=== PATIENT | male | born 2000 | race Hispanic/Latino ===

== ENCOUNTER → 2023-01-20 | Outpatient (CLI) | payer OTHER ==
[~2023-01-20] MED LIST: METHACHOLINE KIT INH ONE
== END ==
LOC: M CARPUL 07:37
PROVIDERS: ATTEND Internal Medicine Pulmonary Disease
DX: R06.02 Shortness of breath (principal)
CPT/HCPCS: 88738; 94060; 94726; 94729; J7674

== ENCOUNTER → 2023-02-03 | Outpatient (CLI) | payer OTHER | LOC: M CARPUL 14:16 | PROVIDERS: ATTEND Internal Medicine Pulmonary Disease | DX: R06.02 Shortness of breath (principal) | CPT/HCPCS: 94070; J7674 ==